=== PATIENT | female | born 1975 | race African-American/Black ===

== ENCOUNTER 2022-09-10 12:14 | Emergency (ER) | payer OTHER ==
[~2022-09-10] VITALS: Ht 157.5 cm; Wt 116.0 kg
[2022-09-10 13:59] VITALS: BP 134/90
[2022-09-10] MEDS ORDERED: IBUP-1456 PO (14:32)
== END 2022-09-10 14:43 | disposition home or self-care (01) ==
LOC: ER 12:14
DX: D17.21 Benign lipomatous neoplasm of skin and subcutaneous tissue of right arm (principal); M67.441 Ganglion, right hand; Z88.6 Allergy status to analgesic agent

== ENCOUNTER 2023-08-11 13:53 | Emergency (ER) | payer OTHER ==
[~2023-08-11] VITALS: Ht 157.5 cm; Wt 112.3 kg
[~2023-08-11 13:53] MED LIST: IBUP-1456 PO
[2023-08-11 15:23] LABS: Basophils # (auto) 0.1 10 ^3/uL (0-0.2); Basophils % (auto) 0.8 % (0.0-2.0); Eosinophils # (auto) 0.1 10 ^3/uL (0-0.8); Hemoglobin 14.1 g/dL (12.2-16.2); Lymphocytes # (auto) 2.5 10 ^3/uL (0.4-5.4); Monocytes # (auto) 0.3 10 ^3/uL (0-1.3); Neutrophils # (auto) 3.4 10 ^3/uL (1.6-8.6); White Blood Cell 6.4 10^3/uL (4.4-10.8)
[2023-08-11 15:25] LABS: Eosinophils % (auto) 1.3 % (0.0-7.0); Hematocrit 44.8 % (36.0-46.0); Lymphocytes % (auto) 39.8 % (10.0-50.0); Mean Corpuscular Hemoglobin 25.7 pg (28.0-32.0); Mean Corpuscular Hgb Conc. 31.6 g/dL (32.0-36.0); Mean Corpuscular Volume 81.4 fL (80.0-100.0); Monocytes % (auto) 4.3 % (0.0-12.0); Neutrophils % (auto) 53.8 % (37.0-80.0); Nucleated Red Blood Cells % 0.1 %; Red Cell Distribution Width 15.3 % (11.8-14.3)
[2023-08-11 15:37] LABS: Chloride 109 mmol/L (98-107); Potassium 3.7 mmol/L (3.5-5.1); Sodium 141 mmol/L (136-145)
[2023-08-11 15:38] LABS: Anion Gap 9 (5-15); Calcium 9.6 mg/dL (8.5-10.1); Carbon Dioxide 23 mmol/L (20-30)
[2023-08-11 15:43] LABS: BUN/Creatinine Ratio 7.7 (10.0-20.0); Blood Urea Nitrogen 6 mg/dL (9-23); Glucose 95 mg/dL (74-106)
[2023-08-11 23:01] LABS: Urine Bacteria FEW /hpf (None Seen); Urine Blood 1+ /uL (Negative); Urine Clarity Clear (Clear); Urine Color Yellow (Yellow); Urine Mucus FEW (None Seen); Urine Protein, UAD TRACE (Negative); Urine Specific Gravity 1.017 (1.001-1.035); Urine Urobilinogen Normal (Negative); Urine WBC 3 /hpf (0 - 5); Urine pH 5.5 (5.0-9.0)
[2023-08-11] MEDS ORDERED: CEPH500C PO (23:22)
[2023-08-12 05:39] VITALS: PULSE 73; RESP 16; O2SAT 99
[2023-08-12 07:09] VITALS: BP 114/64; PULSE 62; RESP 14; TEMP 98; O2SAT 99
== END 2023-08-12 07:30 | disposition short-term general hospital (02) ==
LOC: ER 13:53
DX: R33.9 Retention of urine, unspecified (principal); Z79.1 Long term (current) use of non-steroidal anti-inflammatories (NSAID)
CPT/HCPCS: 36415; 51702; 72131; 80048; 81001; 85025